=== PATIENT | female | born 1950 | race Caucasian/White ===

== ENCOUNTER 2017-04-08 09:30 | Outpatient (CLI) | payer OTHER ==
[~2017-04-08 09:30] MED LIST: Iopamidol 370 76% 100 ML VIAL ONE
--- NOTE | 2017-04-08 11:21 | CT ---
CT ABDOMEN AND PELVIS WITH CONTRAST: TECHNIQUE: Multiple axial tomograms obtained through the abdomen and pelvis with IV enhancement. HISTORY: Abdominal pain. Pelvic pain. Bloating. Post hysterectomy 01/24/17 due to fibroid. Prior anterior u mbilical hernia repair. FINDINGS: The lung bases are clear. The liver, spleen, and pancreas appear unremarkable. Adrenal glands appear normal. Kidneys unremark able. Stomach and duodenum unremarkable. Small bowel loops appear normal. Appendix is normal. Col on is unremarkable. The upper left colon and splenic flexure region is poorly distended and colonic wall cannot be adequately assessed at this location. Mild mural thickening in this region is not exc luded by CT. Lower left colon shows scattered small diverticula. Images through the pelvis unremark able with post-hysterectomy change. The bladder is distended and appears unremarkable. Aorta is nor mal. No evidence of adenopathy. No evidence of anterior abdominal wall defect. IMPRESSION: 1. Question mural thickening involving the upper left colon and splenic flexure region. This is sub optimally evaluated due to poor distention; however, if there are symptoms related to the colon, deo mmend this be further evaluated with colonoscopy. 2. CT abdomen and pelvis otherwise unremarkable. POS: [facility]
== END 2017-04-08 09:31 | disposition home or self-care (01) ==
LOC: SCSCT 09:30
PROVIDERS: ATTEND Family Medicine
DX: R10.2 Pelvic and perineal pain (principal); R14.0 Abdominal distension (gaseous); Z90.710 Acquired absence of both cervix and uterus
CPT/HCPCS: 74177

== ENCOUNTER 2017-05-04 08:03 | Outpatient (CLI) | payer MEDICARE | END 2017-05-04 08:04 | disposition home or self-care (01) | LOC: BICULT 08:03 | PROVIDERS: ATTEND Family Medicine | DX: R14.0 Abdominal distension (gaseous) (principal); R11.0 Nausea; R10.9 Unspecified abdominal pain; K80.20 Calculus of gallbladder without cholecystitis without obstruction | CPT/HCPCS: 76705 ==

== ENCOUNTER 2017-08-01 14:39 | Outpatient (CLI) | payer MEDICARE | END 2017-08-01 14:40 | disposition home or self-care (01) | LOC: BICMAMMO 14:39 | PROVIDERS: ATTEND Family Medicine | DX: Z12.31 Encounter for screening mammogram for malignant neoplasm of breast (principal) | CPT/HCPCS: 77063; 77067 ==

== ENCOUNTER 2017-09-22 11:04 | Outpatient (CLI) | payer MEDICARE | END 2017-09-22 11:05 | disposition home or self-care (01) | LOC: BICRAD 11:04 | PROVIDERS: ATTEND Family Medicine | DX: J18.9 Pneumonia, unspecified organism (principal) | CPT/HCPCS: 71046 ==

== ENCOUNTER 2017-12-23 14:04 | Outpatient (CLI) | payer MEDICARE | END 2017-12-23 14:05 | disposition home or self-care (01) | LOC: BICMAMMO 14:04 | PROVIDERS: ATTEND Family Medicine | DX: Z13.820 Encounter for screening for osteoporosis (principal); M85.852 Other specified disorders of bone density and structure, left thigh | CPT/HCPCS: 77080 ==